=== PATIENT | male | born 1995 | race Caucasian/White ===

== ENCOUNTER 2021-03-20 10:59 | Emergency (ER) | payer OTHER, SELFPAY ==
[2021-03-20 11:16] VITALS: BP 136/84; PULSE 71; RESP 12; TEMP 37.1; O2SAT 100
--- NOTE | 2021-03-20 12:20 | ED.URI ---
HPI - URI/Sore Throat General Chief Complaint: Upper Respiratory Infection Stated Complaint: sinus congestion Source: patient and RN notes reviewed Limitations: no limitations History of Present Illness HPI Narrative: The vaccinated patient, non-smoker/nondrinker who works as a lead cargo mover, presents with a shorter 1 to 2-day history of nasal congestion, cough. Symptoms are mild, unrelieved with OTC preps like Sudafed. No fever, earache, sputum changes, sneezing/wheezing; no loss of taste/smell, CP, vomiting/diarrhea, S OB Related Data Home Medications Medication Instructions Recorded Confirmed epinephrine 0.3 mg/0.3 mL 0.3 mg IM ONCE 09/17/19 03/20/21 injection, auto-injector Allergies Allergy/AdvReac Type Severity Reaction Status Date / Time Bumble Bee Allergy Severe swelling Uncoded 03/20/21 11:18 throat NKDA Allergy Mild unknown Uncoded 03/20/21 11:18 Review of Systems Review of Systems: General/Constitutional: No weight loss,fever Eyes: N0: Redness,discharge Ears/Nose/Throat: No: Epistaxis,ear discharge Respiratory: Denies: Hemoptysis Gastrointestinal: No Vomiting, Bleeding-rectal Skin: No Lumps, eruption Neurologic: No Focal Weakness,Sz Hematologic: Denies: Petechiae/Purpura Psychiatric: No: Suicida ideationl All Other Systems: Reviewed and Negative PMFSH Past Medical History Medical History (Updated 03/20/21 @ 12:24 by Maurizio Candelario MD) Bee sting allergy Family History Family History (Updated 12/22/16 @ 20:36 by DOCTOR UNKNOWN) Mother Family history of thyroid disease Diabetes mellitus Family history of obesity Hypertension Father Hypertension Family history of type 1 diabetes mellitus Social History Social History (Updated 09/17/19 @ 15:52 by Tracee Garrido) Social History: single Smoking status: Never smoker Second hand tobacco smoke exposure: No Alcohol intake: current Drinks per week: 2 Substance use: never Substance use type: does not use Gender identity (if verbalized by the patient): Male Comments At time of signature, agree with nursing past medical, surgical, social and family history. There is no relevant family history pertinent to the presenting complaint Exam Narrative: General Appearance: Well appearing, Well nourished EYE: PERRLA, Conjunctiva clear Ears: Auditory canal normal, TM normal Nose: Rhinorrhea, Mucousal erythema Mouth/Throat: MM moist, Uvula midline, Pharyngeal erythema Neck: Supple, No adenopathy Respiratory: No respiratory distress, Breath sounds equal, Clear to auscultation Cardiovascular: RRR, No JVD Musculoskeletal: Non tender, Normal strength Skin: Warm, Dry Neurological: A&O x3, CN II-XII intact Psychiatric: Normal mood, Normal affect Course Vital Signs Vital signs: Vital Signs Temperature 98.8 F 03/20/21 11:16 Pulse Rate 71 03/20/21 11:16 Respiratory Rate 12 03/20/21 11:16 Blood Pressure 136/84 03/20/21 11:16 Pulse Oximetry 100 03/20/21 11:16 Temperature 98.8 F 03/20/21 11:16 Pulse Rate 71 03/20/21 11:16 Respiratory Rate 12 03/20/21 11:16 Blood Pressure 136/84 03/20/21 11:16 Pulse Oximetry 100 03/20/21 11:16 Discharge Plan Discharge Clinical Impression: Sinus headache Patient Disposition: Home, Self-Care Condition: Stable Instructions: Rhinosinusitis (ED) Prescriptions: New azelastine 137 mcg (0.1 %) aerosol,spray 137 mcg NASAL Q12H Qty: 30 RF: 0 cefuroxime axetil 500 mg tablet 500 mg PO Q12H Qty: 14 RF: 0 No Action epinephrine 0.3 mg/0.3 mL auto-injector 0.3 mg IM ONCE RF: 0 Follow-up/Referrals: Jonelle Sanchez MD [Primary Care Provider] - Stand Alone Forms: Work/School Release IP
== END 2021-03-20 12:30 | disposition home or self-care (01) ==
PROVIDERS: Emergency Provider Emergency Medicine; PCP Family Medicine
DX: R51.9 Headache, unspecified (principal)
CPT/HCPCS: 99213; G0463

== ENCOUNTER → 2021-03-23 02:22 | Outpatient (CLI) | payer OTHER, SELFPAY ==
[2021-03-23 20:46] LABS: SARS-CoV-2 RNA PCR Negative
== END ==
PROVIDERS: PCP Family Medicine; Visit Provider Emergency Medicine
DX: J31.0 Chronic rhinitis (principal); Z20.822 Contact with and (suspected) exposure to COVID-19
CPT/HCPCS: C9803; U0003; U0005